=== PATIENT | female | born 1955 | race Caucasian/White ===

== ENCOUNTER 2023-04-16 11:02 | Emergency (ER) | payer MEDICARE, OTHER ==
[~2023-04-16 11:02] MED LIST: Iopamidol-370 76% 500 ML MDV (1 ML CHARGE) ONE
[2023-04-16] MEDS ORDERED: fentaNYL 50 mcg/mL 1 mL Vial ONE (12:59)
[2023-04-16 13:09] LABS: #Monocytes 0.5 thou/uL (0.11-0.59); %Basophils 0.7 % (0.0-1.0); %Eosinophils 0.7 % (0.0-10.0); %Lymphocytes 55.2 % (21.0-51.0); %Monocytes 7.9 % (0.0-10.0); %Neutrophils 35.1 % (42.0-75.0); Hematocrit 40.7 % (36.0-47.0); Hemoglobin 13.6 g/dL (12.0-16.0); Mean Corpuscular HGB CONC 33.4 g/dL (32.0-36.0); Mean Corpuscular Hemoglobin 30.3 pg (27.0-31.0); Mean Corpuscular Volume 90.6 fl (78.0-98.0); Platelet Count 226 10x3/uL (130-400); Red Blood Cell (RBC) Count 4.49 mill/uL (4.20-5.40); White Blood Cell (WBC) Count 5.7 10x3/uL (4.8-10.8)
[2023-04-16 13:35] LABS: ALT (SGPT) 10 U/L (8-55); AST (SGOT) 15 U/L (5-34); Albumin 4.2 g/dL (3.4-4.8); Alkaline Phosphatase 69 U/L (40-110); Anion Gap 9 mmol/L (10-20); BUN (Urea Nitrogen) 17 mg/dL (9.8-20.1); Bilirubin, Total 0.3 mg/dL (0.2-1.2); Calc. Creatinine Clearance 0 mL/min (70-130); Calcium 9.8 mg/dL (7.8-10.44); Carbon Dioxide 28 mmol/L (23-31); Chloride 102 mmol/L (98-107); Estimated GFR 80; Globulin 2.5 g/dL (2.4-3.5); Glucose 92 mg/dL (80-115); Potassium 3.8 mmol/L (3.5-5.1); Protein, Total 6.7 g/dL (5.8-8.1); Sodium 135 mmol/L (136-145)
[2023-04-16] MEDS ORDERED: Morphine 4 MG/ML VIAL ONE (14:03)
[2023-04-16] MEDS ORDERED: Lidocaine 4% Patch TD SCH (14:30)
[2023-04-16 15:29] LABS: Troponin I Less than 0.010 ng/mL (< 0.028)
[2023-04-16] MEDS ORDERED: Ketorolac Tromethamine 30 MG (1 mL) VIAL ONE (16:44)
[2023-04-17] MEDS ORDERED: Transdermal Patch Removal TOP SCH (02:30)
== END 2023-04-16 18:06 | disposition home or self-care (01) ==
LOC: ERS 11:02
DX: S20.211A Contusion of right front wall of thorax, initial encounter (principal); J90 Pleural effusion, not elsewhere classified; R56.9 Unspecified convulsions; J44.9 Chronic obstructive pulmonary disease, unspecified; X50.0XXA Overexertion from strenuous movement or load, initial encounter
CPT/HCPCS: 71046; 71275; 74174; 80053; 83880; 84484; 85025; 93005; J3010; 96374; 96375; J1885; J2270; Q9967

== ENCOUNTER 2023-10-17 19:50 | Emergency (ER) | payer MEDICARE, OTHER ==
[2023-10-17 21:30] LABS: Bacteria/HPF None Seen HPF (None Seen); Bilirubin Negative (Negative); Blood, Urine Negative (Negative); CAUTI Indications for Culture Alt mental st,lethar; Clarity Clear (Clear); Glucose, Urine (Dipstick) Normal (Negative); Ketone, Urine Negative (Negative); Leukocyte Negative Leu/uL (Negative); Nitrite Negative (Negative); Protein, Urine (Dipstick) Negative (Neg-Trace); RBC/HPF None Seen HPF (0-3); Squamous Epithelial None Seen HPF (0-3); Urobilinogen Normal mg/dL (Less than 2); WBC/HPF None Seen HPF (0-3); pH, Urine 5.5 (5.0-9.0)
[2023-10-17 21:31] LABS: Urine Culture Reflex No No
[2023-10-17 22:24] LABS: #Basophils 0.03 10x3/uL (0.0-0.2); %Basophils 0.6 % (0.0-1.0); %Eosinophils 2.3 % (0.0-10.0); %Lymphocytes 52.8 % (21.0-51.0); %Monocytes 8.2 % (0.0-10.0); %Neutrophils 35.7 % (42.0-75.0); Hematocrit 35.1 % (36.0-47.0); Hemoglobin 11.5 g/dL (12.0-16.0); Mean Corpuscular HGB CONC 32.8 g/dL (32.0-36.0); Mean Corpuscular Hemoglobin 29.3 pg (27.0-31.0); Mean Corpuscular Volume 89.5 fL (78.0-98.0); Mean Platelet Volume 10.4 fL (7.4-10.4); Platelet Count 131 10x3/uL (130-400); RBC Distribution Width 12.6 % (11.5-14.5); Red Blood Cell (RBC) Count 3.92 mill/uL (4.20-5.40)
[2023-10-17 22:39] LABS: ALT (SGPT) 18 U/L (8-55); AST (SGOT) 27 U/L (5-34); Albumin 3.7 g/dL (3.4-4.8); Alkaline Phosphatase 77 U/L (40-110); Anion Gap 12 mmol/L (10-20); BUN (Urea Nitrogen) 21 mg/dL (9.8-20.1); Bilirubin, Total 0.3 mg/dL (0.2-1.2); CK (CPK) 270 U/L (29-168); Calc. Creatinine Clearance 0 mL/min (70-130); Calcium 9.2 mg/dL (7.8-10.44); Carbon Dioxide 28 mmol/L (23-31); Chloride 103 mmol/L (98-107); Estimated GFR 42; Globulin 2.4 g/dL (2.4-3.5); Glucose 75 mg/dL (80-115); Potassium 4.1 mmol/L (3.5-5.1); Protein, Total 6.1 g/dL (5.8-8.1); Sodium 139 mmol/L (136-145); Troponin I Less than 0.010 ng/mL (< 0.028)
== END 2023-10-17 23:37 | disposition home or self-care (01) ==
LOC: ERS 19:50
DX: S80.01XA Contusion of right knee, initial encounter (principal); S80.02XA Contusion of left knee, initial encounter; G47.00 Insomnia, unspecified; I10 Essential (primary) hypertension; J44.9 Chronic obstructive pulmonary disease, unspecified; F17.210 Nicotine dependence, cigarettes, uncomplicated; W19.XXXA Unspecified fall, initial encounter
CPT/HCPCS: 36415; 51701; 70450; 71045; 72125; 80053; 81001; 82550; 84484; 85025; 93005

== ENCOUNTER 2024-04-03 13:31 | Outpatient (CLI) | payer MEDICARE, OTHER | END 2024-04-03 13:32 | disposition home or self-care (01) | LOC: RAD 13:31 | PROVIDERS: ATTEND Internal Medicine | DX: R06.00 Dyspnea, unspecified (principal) | CPT/HCPCS: 71046 ==

== ENCOUNTER 2024-12-15 11:15 | Outpatient (CLI) | payer MEDICARE, OTHER | END 2024-12-15 11:16 | disposition home or self-care (01) | LOC: RAD 11:15 | PROVIDERS: ATTEND Neurological Surgery | DX: T85.193A Other mechanical complication of implanted electronic neurostimulator, generator, initial encounter (principal); M43.17 Spondylolisthesis, lumbosacral region; M41.9 Scoliosis, unspecified; M47.816 Spondylosis without myelopathy or radiculopathy, lumbar region; M47.817 Spondylosis without myelopathy or radiculopathy, lumbosacral region | CPT/HCPCS: 72070; 72100 ==

== ENCOUNTER 2025-01-09 05:43 | Day surgery (SDC) | payer MEDICARE, OTHER ==
[2025-01-02 13:21] VITALS: BMI 27.0
[2025-01-09] MEDS ORDERED: Bacitracin Zinc Ointment 30 gm TUBE ONE (06:25)
[2025-01-09] MEDS ORDERED: Lidocaine 1% PF 5 ML VIAL ONE (06:50)
[2025-01-09] MEDS ORDERED: Rocuronium Bromide 10 MG/ML (10ML VIAL) ONE (06:50)
[2025-01-09] MEDS ORDERED: Ondansetron PF 4 MG/2 ML Vial ONE (06:50)
[2025-01-09] MEDS ORDERED: fentaNYL PF 100 MCG/2 ML SYRINGE ONE (06:50)
[2025-01-09] MEDS ORDERED: Lidocaine 2% 6 ML (Jelly) SYR ONE (07:00)
[2025-01-09] MEDS ORDERED: CEFAZOLIN 2 GM VIAL ONE ×2 (07:01→11:56)
[2025-01-09] MEDS ORDERED: PROPOFOL 200 MG/20 ML VIAL ONE (07:16)
[2025-01-09] MEDS ORDERED: SUGAMMADEX SODIUM 200 MG/2 ML VIAL ONE (07:39)
[2025-01-09] MEDS ORDERED: Thrombin 5000 UNITS/5 ML VIAL ONE (08:02)
[2025-01-09] MEDS ORDERED: Bisacodyl 10 MG SUPP PR PRN (12:45)
[2025-01-09] MEDS ORDERED: diphenhydrAMINE 25 MG CAP PO PRN (12:45)
[2025-01-09] MEDS ORDERED: Cyclobenzaprine 10 MG TAB PO PRN (12:45)
[2025-01-09] MEDS ORDERED: Mag-Al 1200 mg/1200 mg/30 ML UDCUP PO PRN (12:45)
[2025-01-09] MEDS ORDERED: diphenhydrAMINE 50 MG/ML VIAL IVP PRN (12:45)
[2025-01-09] MEDS ORDERED: Ondansetron PF 4 MG/2 ML Vial SLOW IVP PRN (12:55)
== END 2025-01-09 13:03 | disposition home or self-care (01) ==
LOC: SDC 05:43
PROVIDERS: ATTEND Neurological Surgery
PROC: 00PU0MZ Removal of Neurostimulator Lead from Spinal Canal, Open Approach (ICD-10-PCS; principal; 2025-01-09)
DX: T85.192A Other mechanical complication of implanted electronic neurostimulator of spinal cord electrode (lead), initial encounter (principal); Z88.6 Allergy status to analgesic agent; Z91.048 Other nonmedicinal substance allergy status
CPT/HCPCS: 63662; 63688; A6258; C1713; J0169; J0665; J1100; J2250; J2272; J2405; J7030